=== PATIENT | female | born 1965 | race Caucasian/White ===

== ENCOUNTER 2024-05-09 10:33 | Emergency (ER) | payer BC, SELFPAY ==
[2024-05-09 10:36] VITALS: BP 150/89
--- NOTE | 2024-05-09 11:05 | ED.GENMED ---
History of Present Illness
General
Chief Complaint: Musculo-Skeletal Complaint
Source: patient
Exam Limitations: none
Time Seen by Provider: 05/09/24 10:46
Nursing documentation reviewed up to this point in time: agreed with
History of Present Illness
History of Present Illness:
58-year-old female presenting to the emergency department today with concerns of left-sided wrist discomfort. She claims that she tripped and fell in her wrist yesterday ongoing discomfort since. Denies numbness weakness no head trauma not on
blood thinners.
Review of Systems
Review of Systems
Allergies reviewed?: Yes
All Other Systems: ROS reviewed and negative except as documented in HPI and ROS
Phy Exam
Physical Exam
Physical Exam:
GENERAL: Alert , in no apparent distress
EYE: pupils equal and reactive
NECK: Supple, no significant adenopathy.
ENT: o/p clr, mmm.
CARDIAC: Regular rate and rhythm .
LUNGS: Clear breath sounds bilaterally, no acute respiratory distress, no wheezes/rales/rhonchi
ABDOMEN: Soft, without focal tenderness, no r/g, no cvat
NEUROLOGICAL: Alert and oriented, no focal neuro deficits
SKIN: Warm and dry, skin intact.
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 Normal distal pulses well perfused.
PSYCH: Normal and appropriate interaction.
Course
Orders/Labs/Results
Orders:
Orders
05/09/24 10:38
Wrist, Left 3 Views CR [CR Wrist - Left Min 3 Views] Urgent
Comment:
Reason For Exam: pain
Vital Signs
Initial and Last Documented VS:
Initial Vital Signs
Temp Pulse Resp BP Pulse Ox
98.4 F 103 18 150/89 96
05/09/24 10:36 05/09/24 10:36 05/09/24 10:36 05/09/24 10:36 05/09/24 10:36
Last Documented Vital Signs
Temp Pulse Resp BP Pulse Ox
98.4 F 103 18 150/89 96
05/09/24 10:36 05/09/24 10:36 05/09/24 10:36 05/09/24 10:36 05/09/24 10:36
Procedures
Splinting/Sling Placement
Left Wrist:
Procedure completed by: Myself
Pre-splint extermity exam: neurovascular intact
Type of splint: sugar-tong
Splint material: fiberglass
Splint checked by provider?: No
Type of sling: sling fitted
Normal distal neurovascular exam?: No
MDM/Problems Addressed
MDM/Problems Addressed:
58-year-old female presenting to the emergency department today with concerns of wrist injury. She was found have a distal radius fracture. Patient was splinted otherwise no additional injuries neurovascular intact stable for follow-up with
orthopedics. Return precautions given.
*Critical Care Note
Total Time (30-74mins, 75-104mins- exclusive of procedures): Not Applicable
ED Attending Note
-
Portions of this chart may have been created with voice recognition software.� Occasional wrong word or��sound alike� substitutions may have occurred due to the inherent limitations of voice recognition software.
Discharge Plan
Departure
Patient Disposition: Home (Routine Discharge)
Date of Disposition: 05/09/24
Time of Disposition: 11:09
Patient with high blood pressure during this ER visit?: No
Condition: Good
Covid-19: Not Applicable
Discharge Problem:
Distal radial fracture
Instructions: Wrist Fracture (DC)
Referrals:
Joshua Ortega MD [Active] - Follow up in 5-7 days
Kanika Yao MD [Family Provider] -
Activity Restrictions/Additional Instructions:
You came to the emergency department today with concerns of a wrist injury. You are found to have a wrist fracture. Please wear the splint and follow-up closely with orthopedics this week. Return to the emergency department for any worsening, new
or concerning symptoms.
Interventions
Interventions:
*Risk Screen - Suicide Last Done: 05/09/24 10:36
*General Assessment Last Done: 05/09/24 10:36
*ED COVID-19 Vaccine History Last Done: 05/09/24 10:36
Discharge Date and Time
Print Language: DIVEHI
== END 2024-05-09 11:25 | disposition home or self-care (01) ==
LOC: EMR 10:33
PROVIDERS: EMERGENCY PHYSICIAN Student in an Organized Health Care Education/Training Program; FAMILY PHYSICIAN Internal Medicine
DX: S52.502A Unspecified fracture of the lower end of left radius, initial encounter for closed fracture (principal); W01.0XXA Fall on same level from slipping, tripping and stumbling without subsequent striking against object, initial encounter; Z86.718 Personal history of other venous thrombosis and embolism
CPT/HCPCS: 99283; 29125; 73110

== ENCOUNTER 2024-12-09 17:34 | Emergency (ER) | payer BC, SELFPAY ==
[2024-12-09 17:44] VITALS: BP 138/69
[2024-12-09 19:00] VITALS: BP 114/69
--- NOTE | 2024-12-09 19:28 | ED.GENMED ---
History of Present Illness
General
Chief Complaint: Swelling
Source: patient
Exam Limitations: none
Time Seen by Provider: 12/09/24 18:54
Nursing documentation reviewed up to this point in time: agreed with
History of Present Illness
History of Present Illness:
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 Denies chest pain or trouble breathing.
Past History
Past History
ED Past Medical History: Other (DVT on Eliquis)
ED Past Surgical History: and Orthopedic
Social History
Tobacco: Non-smoker
Alcohol: Occasional
Personal:
Living: with family
Employment: Employed
Review of Systems
Review of Systems
Allergies reviewed?: Yes
All Other Systems: ROS reviewed and negative except as documented in HPI and ROS
Constitutional: Denies fever
Respiratory: Denies trouble breathing
Cardiac: Denies chest pain
Musculoskeletal: Reports other (Mild pain behind right knee, swelling right lower leg.)
Skin: Reports no symptoms
Phy Exam
Physical Exam
Physical Exam:
GENERAL: No acute distress. A&Ox3.
CONSTITUTIONAL: Afebrile.
RESPIRATORY: Regular respirations, nonlabored, lungs clear.
CARDIOVASCULAR: Regular rate and rhythm, no murmurs, no rubs.
MUSCULOSKELETAL: Mild swelling right lower extremity, no redness or warmth. Pain elicited behind right knee with flexion. Pedal and posterior tibial pulses are normal. Brisk capillary refill. Moves with ease. Well perfused.
SKIN: Warm, dry, pink
PSYCH: Normal mood and affect. Well kept, interactive and appropriate
NEUROLOGIC: Awake, alert and oriented. No focal neurological deficits
Scores
Heart Failure Risk
Heart Failure Risk Score: Not Applicable
Course
Orders/Labs/Results
Orders:
Orders
12/09/24 17:52
US Legs, Right [US Periph Venous LOWER Ext RT] Urgent
Comment:
Reason For Exam: pain and swelling with history of dvt
Vital Signs
Initial and Last Documented VS:
Initial Vital Signs
Temp Pulse Resp BP Pulse Ox
98.1 F 81 18 138/69 93
12/09/24 17:44 12/09/24 17:44 12/09/24 17:44 12/09/24 17:44 12/09/24 17:44
Last Documented Vital Signs
Temp Pulse Resp BP Pulse Ox
98.1 F 81 18 138/69 94
12/09/24 17:44 12/09/24 17:44 12/09/24 17:44 12/09/24 17:44 12/09/24 17:44
MDM/Problems Addressed
Differential Diagnosis Includes:
DVT, knee sprain, ruptured Mcintyre's cyst
MDM/Problems Addressed:
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 Denies chest pain or trouble breathing.
Afebrile, NAD
Ultrasound negative for DVT
Patient ambulating well
*Pulse Oximetry
SaO2: 94
Oxygen Mode of Delivery: Room air
Patient hypoxic: not evaluated
*Critical Care Note
Total Time (30-74mins, 75-104mins- exclusive of procedures): Not Applicable
ED Attending Note
-
Portions of this chart may have been created with voice recognition software.� Occasional wrong word or��sound alike� substitutions may have occurred due to the inherent limitations of voice recognition software.
Discharge Plan
Departure
Patient Disposition: Home (Routine Discharge)
Date of Disposition: 12/09/24
Time of Disposition: 19:25
Patient with high blood pressure during this ER visit?: No
Condition: Good
Discharge Problem:
Swelling of right lower extremity
Instructions: Dependent Edema (DC), Mcintyre's Cyst (DC)
Referrals:
NONE,* [Family Provider, Internal Medicine]
Kanika Yao MD [Non-Admitting Privileges, Internal Medicine] - Call in 1-3 days for appt
Activity Restrictions/Additional Instructions:
As we discussed, your ultrasound is negative for a clot.
You MAY have ruptured a Mcintyre's cyst and the fluid has settled in your lower leg.
Elevating the leg will help with swelling.
See your doctor in 5 to 7 days if the swelling is not improving
Interventions
Interventions:
*Risk Screen - Suicide Last Done: 12/09/24 17:44
*General Assessment Last Done: 12/09/24 17:44
Discharge Date and Time
Print Language: KHMER
== END 2024-12-09 19:53 | disposition home or self-care (01) ==
LOC: EMR 17:34
PROVIDERS: EMERGENCY PHYSICIAN Student in an Organized Health Care Education/Training Program
DX: R22.41 Localized swelling, mass and lump, right lower limb (principal); Z86.718 Personal history of other venous thrombosis and embolism; Z79.01 Long term (current) use of anticoagulants
CPT/HCPCS: 99284; 93971